=== PATIENT | female | born 1955 | race Caucasian/White ===

== ENCOUNTER 2019-08-04 07:28 | Day surgery (SDC) | payer BC ==
[~2019-08-04 07:28] MED LIST: Midazolam 1 MG/ML 2 ML SDV ONE; Propofol 200 MG/20 ML SDV ONE; fentaNYL 100 MCG/2 ML SDV ONE
[2019-08-04] MEDS ORDERED: Dextrose 5%-Lactated Ringers 1,000 ML IV SCH (08:00)
[2019-08-04] MEDS ORDERED: Meropenem 500 MG in Sodium Chloride 0.9% 50 ML IV ONE (08:00)
[2019-08-04] MEDS ORDERED: Propofol 200 MG/20 ML SDV ONE (08:33)
[2019-08-04] MEDS ORDERED: Atropine 0.4 MG/ML SDV ONE (08:42)
[2019-08-04] MEDS ORDERED: Pantoprazole 40 MG Vial IVPUSH ONE (09:00)
[2019-08-04] MEDS ORDERED: Ondansetron 4 MG Tab.DIS PO ONE (10:31)
--- NOTE | 2019-08-12 20:51 | OR ---
DATE OF PROCEDURE: 08/04/2019 SURGEON: Haseeb Chua MD PREOPERATIVE DIAGNOSES: 1. Dysphagia referable to distal esophagus. 2. Indications for screening colonoscopy. POSTOPERATIVE DIAGNOSES: 1. Dysphagia associated with: a. Large (5 cm) hiatal hernia and active gastroesophageal reflux disease. b. Antral gastritis and proximal duodenitis. 2. Flexible colonoscopy showing a left colonic diverticulosis and a single polyp at 25 cm from the dentate line. OPERATIVE PROCEDURES: 1. Esophagogastroduodenoscopy with: 2. Biopsies of esophagogastric junction for histologic evaluation. 3. Biopsies of antrum for CLOtest. 4. Flexible colonoscopy with polypectomy by snare technique. ANESTHESIA: IV sedation. INDICATIONS FOR PROCEDURE: The patient presents with the above of complaints and indications. The plan was to proceed with upper and lower endoscopy with biopsies and/or polypectomy as indicated. Potential risks including bleeding and perforation were discussed, and the patient wishes to proceed. DETAILS OF THE PROCEDURE: The patient was taken to the operating room and placed a left lateral decubitus position. IV sedation was administered, after which the upper GI endoscope was easily passed into the esophagus and into the stomach with retroflexion view of the fundus, thereafter through the pyloric channel into the junction of 3rd and 4th portions of the duodenum. Findings included normal hypopharynx, larynx, and upper esophageal sphincter. 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 Within the remainder of the stomach, there was some redness in the antrum and proximal duodenum consistent with antral gastritis, proximal duodenitis. Beyond the duodenal bulb, those findings normalized. At this point, biopsies were obtained from the antrum and sent for CLOtest for H pylori and multiple biopsies were then obtained from the esophagogastric junction sent for histologic evaluation. Minimal bleeding from the biopsy sites was seen and the procedure was then concluded. Attention was then taken to the colonoscopy. Initial digital rectal exam was performed and was unremarkable. Colonoscope was then passed into the rectum with retroflexion revealing uncomplicated hemorrhoidal columns. The scope was eventually passed to the level of the cecum. The prep was fairly good with only a small amount of liquid stool present. The patient had quite extensive colonic diverticulosis and a single small polyp in the range of 3 to 4 mm located at 25 cm from the dentate line. The latter was encircled and removed by means of standard technique and this was sent for histologic evaluation. No bleeding from the polypectomy site was seen and the procedure was then concluded. At this point, the plan will be to repeat the colonoscopy in 2 years. She will also be started on Protonix 40 mg daily and given some Protonix in the recovery room IV to initiate the process. We will notify the patient of pathology report when available. Haseeb Chua MD /[id number]
== END 2019-08-04 11:25 | disposition home or self-care (01) ==
LOC: JP.SDS 07:28
PROVIDERS: ATTEND Surgery
DX: Z12.11 Encounter for screening for malignant neoplasm of colon (principal); K51.40 Inflammatory polyps of colon without complications; K64.9 Unspecified hemorrhoids; K44.9 Diaphragmatic hernia without obstruction or gangrene; K21.9 Gastro-esophageal reflux disease without esophagitis; K57.30 Diverticulosis of large intestine without perforation or abscess without bleeding; K29.70 Gastritis, unspecified, without bleeding; K29.80 Duodenitis without bleeding
CPT/HCPCS: 43239; 45385; 87081; 88305; A9270; C9113; J0461; J2185; J2250; J2704; J3010; J7050; J7121

== ENCOUNTER 2024-07-06 16:30 | Emergency (ER) | payer MEDICARE | END 2024-07-06 18:25 | disposition home or self-care (01) | LOC: JP.ED 16:30 | DX: R04.0 Epistaxis (principal); I10 Essential (primary) hypertension; Z96.649 Presence of unspecified artificial hip joint; Z91.018 Allergy to other foods; Z91.040 Latex allergy status; Z91.048 Other nonmedicinal substance allergy status; Z79.899 Other long term (current) drug therapy | CPT/HCPCS: 99283 ==